=== PATIENT | male | born 1995 | race African-American/Black ===

== ENCOUNTER 2023-05-30 14:40 | Emergency (ER) | payer MEDICAID, OTHER ==
[~2023-05-30] VITALS: Ht 170.2 cm; Wt 100.0 kg
[2023-05-30 14:42] VITALS: O2SAT 98
[2023-05-30] MEDS ORDERED: CYCL10TA21 MT (15:55)
[2023-05-30] MEDS: CYCLOBENZAPRINE 10MG TABLET PO ONE (16:38)
[2023-05-30 16:50] VITALS: BP 131/80; PULSE 77; RESP 18; TEMP 97.9
== END 2023-05-30 16:51 | disposition home or self-care (01) ==
LOC: ER 14:40
DX: M62.838 Other muscle spasm (principal); F41.9 Anxiety disorder, unspecified; F20.9 Schizophrenia, unspecified; F31.9 Bipolar disorder, unspecified
CPT/HCPCS: 93005; 99283

== ENCOUNTER 2023-06-13 18:02 | Emergency (ER) | payer OTHER ==
[~2023-06-13] VITALS: Ht 172.7 cm; Wt 87.0 kg
[~2023-06-13 18:02] MED LIST: CYCL10TA21 MT
[2023-06-13 18:09] VITALS: TEMP 98; O2SAT 99
[2023-06-13 19:20] LABS: BASOPHILS % 0.4 % (0.0-2.0); EOSINOPHILS % 1.6 % (0.0-5.0); HEMOGLOBIN. 15.4 g/dL (14.0-18.0); LYMPHOCYTES % 23.1 % (20.0-50.0); MEAN CORPUSCULAR HEMOGLOBIN 30.6 pg (28.0-32.0); MEAN CORPUSCULAR HGB CONC 33.4 g/dL (31.0-37.0); MEAN CORPUSCULAR VOLUME 91.7 fL (80.0-94.0); MEAN PLATELET VOLUME 8.8 fl (7.4-10.4); MONOCYTES % 8.6 % (2.0-8.0); NEUTROPHILS % 66.3 % (40.0-76.0); PLATELET 210 x1000/uL (130-400); RED BLOOD CELL COUNT 5.02 mill/uL (4.7-6.1); RED CELL DISTRIBUTION WIDTH 14.4 % (11.6-14.6); WHITE BLOOD COUNT 8.9 x1000/uL (4.5-11.0)
[2023-06-13 19:31] LABS: ACETAMINOPHEN < 2 ug/mL (10-30); ALANINE AMINOTRANSFERASE 11 IU/L (10-49); ALBUMIN 5.1 g/dL (3.2-4.8); ASPARTATE AMINOTRANSFERASE 18 IU/L (<34); BILIRUBIN TOTAL 0.5 mg/dL (0.1-1.0); CALCIUM 9.4 mg/dL (8.7-10.4); CARBON DIOXIDE 23 mEq/L (21-32); CHLORIDE 108 mEq/L (98-107); CREATININE 0.9 mg/dL (0.6-1.3); ETHANOL BLOOD < 10 mg/dL (<10); GLUCOSE 91 mg/dL (70-105); PHOSPHORUS 2.3 mg/dL (2.5-4.9); POTASSIUM 3.9 mEq/L (3.5-5.1); PROTEIN TOTAL 8.3 g/dL (6.0-8.3); SODIUM 138 mEq/L (136-145); UREA NITROGEN BLOOD 14 mg/dL (9-23)
[2023-06-13 19:32] LABS: CREATINE KINASE 237 IU/L (46-171)
[2023-06-13 19:53] LABS: CLARITY URINE CLEAR (CLEAR); COLOR URINE YELLOW (YELLOW); GLUCOSE URINE NEGATIVE (NEGATIVE); KETONES URINE 1+ (NEGATIVE); LEUKOCYTE ESTERASE URINE NEGATIVE (NEGATIVE); NITRITE URINE NEGATIVE (NEGATIVE); OCCULT BLOOD URINE NEGATIVE (NEGATIVE); PROTEIN URINE NEGATIVE (NEGATIVE); SPECIFIC GRAVITY URINE 1.023 (1.005-1.030)
[2023-06-13] MEDS: DIAZEPAM 5 MG/ML 2ML CPJ IV ONE (19:58)
[2023-06-13] MEDS: SODIUM CHLORIDE 0.9% 1,000 ML IV ONE (19:58)
[2023-06-13 20:14] LABS: *AMPHETAMINES SCREEN URINE NEGATIVE (NEGATIVE); *BARBITURATES SCREEN URINE NEGATIVE (NEGATIVE); *BENZODIAZEPINES SCREEN URINE NEGATIVE (NEGATIVE); *COCAINE SCREEN URINE NEGATIVE (NEGATIVE); CANNABINOID URINE SCREEN NEGATIVE (NEGATIVE); ECSTASY MDMA SCREEN URINE NEGATIVE (NEGATIVE); METHADONE URINE SCREEN Neg (NEGATIVE); OPIATES URINE SCREEN NEGATIVE (NEGATIVE); PHENCYCLIDINE URINE SCREEN NEGATIVE (NEGATIVE)
[2023-06-13 21:34] VITALS: BP 140/76; PULSE 106; RESP 16
[2023-06-13] MEDS: KETOROLAC 30MG/ML VIAL IV ONE (21:34)
== END 2023-06-13 21:27 | disposition home or self-care (01) ==
LOC: ER 18:02
DX: R68.2 Dry mouth, unspecified (principal); M79.10 Myalgia, unspecified site; Z98.890 Other specified postprocedural states
CPT/HCPCS: 80053; 80305; 81003; 80307; 80329; 80320; 82550; 83735; 84100; 85025; 36415; 96361; 96374; 96375; 99284; J3360; J1885; J7030; Z7610 ×3; G0480

== ENCOUNTER 2023-06-15 15:37 | Emergency (ER) | payer OTHER ==
[~2023-06-15] VITALS: Ht 182.9 cm; Wt 100.0 kg
[2023-06-15 15:39] VITALS: O2SAT 99
[2023-06-15 16:50] LABS: CLARITY URINE CLEAR (CLEAR); COLOR URINE YELLOW (YELLOW); GLUCOSE URINE NEGATIVE (NEGATIVE); KETONES URINE 2+ (NEGATIVE); LEUKOCYTE ESTERASE URINE NEGATIVE (NEGATIVE); NITRITE URINE NEGATIVE (NEGATIVE); OCCULT BLOOD URINE NEGATIVE (NEGATIVE); PH URINE 6.5 (4.5-8.0); PROTEIN URINE NEGATIVE (NEGATIVE); SPECIFIC GRAVITY URINE 1.018 (1.005-1.030)
[2023-06-15 17:00] LABS: *AMPHETAMINES SCREEN URINE NEGATIVE (NEGATIVE); *BARBITURATES SCREEN URINE NEGATIVE (NEGATIVE); *BENZODIAZEPINES SCREEN URINE NEGATIVE (NEGATIVE); *COCAINE SCREEN URINE NEGATIVE (NEGATIVE); CANNABINOID URINE SCREEN NEGATIVE (NEGATIVE); ECSTASY MDMA SCREEN URINE NEGATIVE (NEGATIVE); METHADONE URINE SCREEN Neg (NEGATIVE); OPIATES URINE SCREEN NEGATIVE (NEGATIVE); PHENCYCLIDINE URINE SCREEN NEGATIVE (NEGATIVE)
[2023-06-15 17:46] LABS: BASOPHILS % 0.2 % (0.0-2.0); EOSINOPHILS % 0.4 % (0.0-5.0); HEMATOCRIT. 46.4 % (42.0-52.0); HEMOGLOBIN. 15.5 g/dL (14.0-18.0); LYMPHOCYTES % 8.6 % (20.0-50.0); MEAN CORPUSCULAR HEMOGLOBIN 30.5 pg (28.0-32.0); MEAN CORPUSCULAR HGB CONC 33.4 g/dL (31.0-37.0); MEAN CORPUSCULAR VOLUME 91.3 fL (80.0-94.0); MEAN PLATELET VOLUME 8.5 fl (7.4-10.4); MONOCYTES % 8.9 % (2.0-8.0); NEUTROPHILS % 81.9 % (40.0-76.0); PLATELET 190 x1000/uL (130-400); RED BLOOD CELL COUNT 5.08 mill/uL (4.7-6.1); RED CELL DISTRIBUTION WIDTH 14.1 % (11.6-14.6); WHITE BLOOD COUNT 14.8 x1000/uL (4.5-11.0)
[2023-06-15 18:07] LABS: ACETAMINOPHEN < 2 ug/mL (10-30); ALANINE AMINOTRANSFERASE 9 IU/L (10-49); ALBUMIN 4.5 g/dL (3.2-4.8); ASPARTATE AMINOTRANSFERASE 22 IU/L (<34); BILIRUBIN TOTAL 0.7 mg/dL (0.1-1.0); CALCIUM 8.9 mg/dL (8.7-10.4); CARBON DIOXIDE 22 mEq/L (21-32); CHLORIDE 104 mEq/L (98-107); CREATININE 0.9 mg/dL (0.6-1.3); GLUCOSE 84 mg/dL (70-105); POTASSIUM 3.5 mEq/L (3.5-5.1); PROTEIN TOTAL 6.9 g/dL (6.0-8.3); SODIUM 140 mEq/L (136-145); THYROID STIMULATING HORMONE 0.64 uIU/mL (0.55-4.78); UREA NITROGEN BLOOD 9 mg/dL (9-23)
[2023-06-15 18:09] LABS: ETHANOL BLOOD < 10 mg/dL (<10)
[2023-06-16] MEDS: LORAZEPAM 2MG/ML INJ IM ONE (10:45)
[2023-06-16] MEDS: OLANZAPINE 5MG TABLET ODT PO SCH (16:00)
[2023-06-16 20:30] VITALS: TEMP 98.6
[2023-06-16 22:20] VITALS: BP 124/79; PULSE 81; RESP 16
== END 2023-06-16 22:55 | disposition still patient (30) ==
LOC: ER 15:37
DX: F20.9 Schizophrenia, unspecified (principal); F41.9 Anxiety disorder, unspecified; Z20.822 Contact with and (suspected) exposure to COVID-19
CPT/HCPCS: 80053; 80305; 81003; 80307; 80329; 80320; 83690; 84443; 85025; 36415; 93005; 96372; 99285; 87426; J2060; Z7610 ×2; G0480